=== PATIENT | male | born 1985 | race Caucasian/White ===

== ENCOUNTER 2017-02-02 19:02 | Inpatient (IN) | END 2017-02-13 17:56 | disposition home or self-care (01) | DRG 207 | DX: J69.0 Pneumonitis due to inhalation of food and vomit (principal); G92 Toxic encephalopathy; J96.00 Acute respiratory failure, unspecified whether with hypoxia or hypercapnia; F11.23 Opioid dependence with withdrawal; T40.1X1A Poisoning by heroin, accidental (unintentional), initial encounter; Y92.9 Unspecified place or not applicable; R45.1 Restlessness and agitation; F15.129 Other stimulant abuse with intoxication, unspecified; D72.829 Elevated white blood cell count, unspecified ==

== ENCOUNTER 2017-03-12 20:33 | Emergency (ER) | payer OTHER ==
[~2017-03-12] VITALS: Ht 165.1 cm; Wt 75.0 kg
[~2017-03-12 20:33] MED LIST: ALBU18HF INH; METH10TA2 PO
[2017-03-12 20:35] VITALS: Ht 165.1 cm; Wt 75.0 kg
[2017-03-12] MEDS ORDERED: LEVALBUTEROL (NEB) 1.25 MG/0.5 ML AMP INH STA (20:46)
[2017-03-12] MEDS ORDERED: DEXAMETHASONE 10 MG/ML 1 ML INJ IM STA (20:46)
[2017-03-12] MEDS ORDERED: IPRATROPIUM (NEB) 0.5 MG/2.5 ML AMP INH STA (20:46)
--- NOTE | 2017-03-12 21:08 | RADRPT ---
PROCEDURE: XR Chest. CLINICAL INDICATION: Asthma exacerbation TECHNIQUE: Single frontal view of the chest was obtained COMPARISON: 03/01/2017 FINDINGS: The heart and mediastinum are within normal limits. The lungs are clear. Minimal blunting of right costophrenic angle consistent with very small residual right pleural effus ion improved compared to previous study. IMPRESSION: Minimal blunting of right costophrenic angle consistent with very small residual right pleural effus ion improved compared to previous study. RPTAT: HJES .Shorty Belcher MD, MD Date Time Electronically viewed and signed by .Shorty Belcher MD, on 03/12/2017 21:08 .S/
[2017-03-12] MEDS ORDERED: ALBU18HF INHALATION (21:53)
--- NOTE | 2017-03-12 22:06 | ERD ---
ER Documentation Chief Complaint Date/Time DATE: 03/12/17 TIME: 21:53 Chief Complaint SOB X2 HRS, RAN OUT OF RESCUE INHALERS AND MEDS HPI 21-year-old male patient with a past medical history of asthma presents to the ED complaining of shortness of breath that occurred intermittently for 2 days. States that he has had a productive cough. Patient has sick contacts, his son with similar symptoms. Denies any fever, nausea, vomiting, abdominal pain, chest pain, dyspnea on exertion. ROS All systems reviewed and are negative except as per history of present illness. Medications Home Meds Active Scripts Albuterol Sulfate* (Ventolin HFA*) 18 Gm Hfa.aer.ad, 2 PUFF INHALATION Q4H, #1 INHALER Prov:CHARLES HARDWICK PA-C 03/12/17 Methadone Hcl* (Methadone*) 10 Mg Tab, 20 MG PO Q12, #60 TAB 0 Refills Prov:SARATH STARKEYP S. 02/13/17 Albuterol Sulfate* (Ventolin HFA*) 18 Gm Hfa.aer.ad, 4 PUFF INH Q2H RESP THERAPY Y for SHORTNESS OF BREATH, #1 2 Refills Prov:SARATH STARKEYP S. 02/13/17 Allergies Allergies: Coded Allergies: No Known Allergy (Unverified , 02/02/17) PMhx/Soc Hx Substance Use: Yes (heroin) Smoking Status: Former smoker Physical Exam Vitals Vital Signs Date Time Temp Pulse Resp B/P Pulse Ox O2 Delivery O2 Flow Rate FiO2 03/12/17 20:59 92 28 99 21 03/12/17 20:35 97.7 118 20 132/68 99 Physical Exam Const: Qke-awk-dmhldnabq, well-nourished. In no acute distress. Head: Atraumatic, normocephalic Eyes: Normal Conjunctiva without injection. No purulent discharge. PERRL. EOMI ENT: Normal external ear. Ear canal without erythema. Tympanic membrane pearly patterson without effusion or bulging. Nasal canal clear with normal turbinates. Moist oropharynx without tonsillar exudates. Non-erythematous pharynx. Uvula midline. No drooling. No trismus. Neck: Full range of motion. No meningismus. No cervical lymphadenopathy. Resp: Inspiratory and expiratory wheezing noted. No rhonchi, rales, or crackles. No accessory muscle use. No retractions. Cardio: Regular rate and rhythm. No murmurs, rubs or gallops. Abd: Soft, non tender, non distended. Normal bowel sounds. No palpable masses. No rebound tenderness. No guarding. Skin: No petechiae or rashes Back: No midline tenderness. No CVA tenderness. Ext: No cyanosis, or edema. Neur: Awake and alert. Psych: Normal Mood and Affect Results 24 hrs Current Medications Medications (Trade) Dose Ordered Sig/Christiano Route PRN Reason Start Time Stop Time Status Last Admin Dose Admin Levalbuterol (Xopenex Neb) 5 mg ONCE STAT INH 03/12/17 20:46 03/12/17 20:48 DC 03/12/17 20:58 Ipratropium Maynard (Atrovent 0.02% (Neb)) 1 mg ONCE STAT INH 03/12/17 20:46 03/12/17 20:48 DC 03/12/17 20:58 Dexamethasone (Decadron) 10 mg ONCE STAT IM 03/12/17 20:46 03/12/17 20:48 DC 03/12/17 20:59 Procedures/MDM 31-year-old male patient with no significant past medical history presents the ED complaining shortness of breath started intermittently for 2 days. Patient is afebrile and nontoxic-appearing. A chest x-ray was ordered to further evaluate patient. A breathing treatment consisting of 5 mg continuous Xopenex, 1 mg Atrovent, 10 mg IM Decadron was ordered to further treat patient with improvement. PROCEDURE: XR Chest. CLINICAL INDICATION: Asthma exacerbation TECHNIQUE: Single frontal view of the chest was obtained COMPARISON: 03/01/2017 FINDINGS: The heart and mediastinum are within normal limits. The lungs are clear. Minimal blunting of right costophrenic angle consistent with very small residual right pleural effusion improved compared to previous study. IMPRESSION: Minimal blunting of right costophrenic angle consistent with very small residual right pleural effusion improved compared to previous study. Patient likely has an asthma exacerbation. Low suspicion for atypical VT, pneumonia, pulmonary embolism, pneumothorax, foreign body aspiration, cardiac tamponade, sinusitis, peritonsillar abscess, mastoiditis, Indra's angina, retropharyngeal abscess, meningitis, sepsis or other emergent conditions. Patient's respiratory status has stabilized while in the department and is appropriate for outpatient work up. Exam and work up not consistent w/ impending respiratory failure or cardiovascular collapse. Discharge medications: Ventolin Follow up with primary care physician in 1-2 days. Instructed patient to return to the ED sooner for any worsening symptoms. Patient's questions were answered. Patient understood and agreed with discharge plan. Patient discharged stable. Departure Diagnosis: Primary Impression: Asthma attack Condition: Stable Patient Instructions: Asthma, Acute (Adult) Referrals: PENDING SALE TO [facility] YOU HAVE RECEIVED A MEDICAL SCREENING EXAM AND THE RESULTS INDICATE THAT YOU DO NOT HAVE A CONDITION THAT REQUIRES URGENT TREATMENT IN THE EMERGENCY DEPARTMENT. FURTHER EVALUATION AND TREATMENT OF YOUR CONDITION CAN WAIT UNTIL YOU ARE SEEN IN YOUR DOCTORS OFFICE WITHIN THE NEXT 1-2 DAYS. IT IS YOUR RESPONSIBILITY TO MAKE AN APPOINTMENT FOR FOLOW-UP CARE. IF YOU HAVE A PRIMARY DOCTOR --you should call your primary doctor and schedule an appointment IF YOU DO NOT HAVE A PRIMARY DOCTOR YOU CAN CALL OUR PHYSICIAN REFERRAL HOTLINE AT IF YOU CAN NOT AFFORD TO SEE A PHYSICIAN YOU CAN CHOSE FROM THE FOLLOWING [facility] [address] [facility]. [facility] [address] [facility] [address] [facility] [facility] [address] [facility] [facility] [address] [facility]. [facility]. [address] [facility]. [facility] YOU HAVE RECEIVED A MEDICAL SCREENING EXAM AND THE RESULTS INDICATE THAT YOU DO NOT HAVE A CONDITION THAT REQUIRES URGENT TREATMENT IN THE EMERGENCY DEPARTMENT. FURTHER EVALUATION AND TREATMENT OF YOUR CONDITION CAN WAIT UNTIL YOU ARE SEEN IN YOUR DOCTORS OFFICE WITHIN THE NEXT 1-2 DAYS. IT IS YOUR RESPONSIBILITY TO MAKE AN APPOINTMENT FOR FOLOW-UP CARE. IF YOU HAVE A PRIMARY DOCTOR --you should call your primary doctor and schedule and appointment IF YOU DO NOT HAVE A PRIMARY DOCTOR YOU CAN CALL OUR PHYSICIAN REFERRAL HOTLINE AT . IF YOU CAN NOT AFFORD TO SEE A PHYSICIAN YOU CAN CHOSE FROM THE FOLLOWING [facility] INSTITUTIONS: [facility] [address] [place] [address] [facility] [address] [place] [address] [facility] + [facility] [address] [place] [address] [facility] Additional Instructions: Call your primary care doctor TOMORROW for an appointment during the next 1-2 days.See the doctor sooner or return here if your condition worsens before your appointment time. CHARLES HARDWICK PA-C Mar 12, 2017 22:05 CHARLES HARDWICK PA-C Mar 12, 2017 22:05
[2017-03-12 22:15] VITALS: PULSE 87; RESP 20; TEMP 98
== END 2017-03-12 21:15 | disposition home or self-care (01) ==
LOC: FTE 20:33
DX: J45.901 Unspecified asthma with (acute) exacerbation (principal); Z87.891 Personal history of nicotine dependence
CPT/HCPCS: 71010; 94644; 96372; J1100; Z7502; Z7610

== ENCOUNTER 2017-03-19 18:28 | Inpatient (IN) | payer OTHER ==
[~2017-03-19] VITALS: Ht 167.6 cm; Wt 66.3 kg
[~2017-03-19 18:28] MED LIST changes: +ALBU18HF INHALATION
[2017-03-19 19:19] VITALS: BP 117/56; RESP 20
[2017-03-19] MEDS ORDERED: PRED50TA PO (20:06)
[2017-03-19] MEDS ORDERED: METH10TA2 PO (20:11)
[2017-03-19] MEDS ORDERED: NACL 0.9% 3 ML SYG IV SCH (20:30)
[2017-03-19] MEDS ORDERED: BISACODYL (EC) 5 MG TAB PO PRN (20:30)
[2017-03-19] MEDS ORDERED: DOCUSATE SODIUM 100 MG CAP PO PRN (20:30)
[2017-03-19] MEDS ORDERED: ONDANSETRON 4 MG INJ IV PRN (20:30)
[2017-03-19] MEDS ORDERED: ACETAMINOPHEN 325 MG TAB PO PRN (20:30)
[2017-03-19 20:43] VITALS: Ht 167.6 cm; Wt 66.3 kg
[2017-03-19] MEDS: FAMOTIDINE 20 MG TAB PO SCH (21:46)
[2017-03-19] MEDS ORDERED: mucinex ORAL (22:54)
[2017-03-20] MEDS: ALBUTEROL 0.083% (NEB) 2.5 MG/3 ML AMP HHN SCH ×6 (02:15→20:16)
[2017-03-20 02:24] VITALS: BP 100/59; RESP 18
--- NOTE | 2017-03-20 04:53 | HP ---
Date/Time of Note Date/Time of Note DATE: 03/20/17 TIME: 04:44 Assessment/Plan VTE Prophylaxis VTE Prophylaxis Intervention: SCD's Lines/Catheters IV Catheter Type (from [facility]): Saline Lock Assessment/Plan Chief Complaint/Hosp Course This is a 31-year-old male being admitted to the [facility] floor for: #1 asthma exacerbation: At the current time we will treat with albuterol every 4 hours, prednisone burst, though there are no signs of any pneumonia on the chest x-ray from the transferring facility notes at the current time as patient does have an elevated white blood cell count and productive sputum and history of fevers will treat for underlying infection. Will obtain x-ray in the a.m. #2 polysubstance abuse: Patient was admitted last month and treated for heroin withdrawal where he required intubation. He is currently on a methadone taper. He is to start 2035 mg of methadone today for 5 days. We will attempt to contact [facility] regarding his methadone dosage. #3 DVT and GI prophylaxis: SCDs, as a ulysses Further treatment strategy will be implemented as per the clinical course Problems: HPI/ROS Admit Date/Time Admit Date/Time Mar 19, 2017 at 18:36 Hx of Present Illness Chief complaint: Shortness of breath, fever This is a 31-year-old male who was transferred from [facility] with symptoms of asthma exacerbation. Patient states that approximately 1 week ago he started experiencing fevers chills and shortness of breath. Approximately 4 days ago he was started on albuterol treatments as well as steroids however since then he has got worse. At the current time he states that he is cough is productive of phlegm greenish and yellow color in nature. He has been currently on steroids daily. He was debated last month after he was found to be under heroin withdrawal. He is currently on methadone taper. He states that he gets his methadone from [facility]. He is currently on 35 mg daily. He denies any chest pain at this time. Of note 1 patient arrived at [facility] he was noted to be in respiratory distress with increased work of breathing. Upon my examination patient is lying comfortably in bed in no acute distress. He does have expiratory wheezing on exam. Allergies: NKDA Medications: See GURMEET GONSALVES Const: As per HPI Eyes : No pain discharge or redness or change in visual acuity ENT: No pain, sore throat, congestion, congestion, dysphagia or discharge Respiratory: As per HPI Cardiovascular: No chest pain, palpitation, PND, or edema GI : no change in appetite, abdominal pain, nausea, vomiting, diarrhea, constipation, or change in the color his stool Genitourinary: No dysuria, hematuria, flank pain , discharge or CVA tenderness Musculoskeletal: No joint pain, back pain, neck pain, restricted range of motion in neck or joints Skin: No rash, bruising or hives Neuro: No headache, dizziness, syncope, seizure, focal weakness Endocrine: No polyuria, polydipsia, temperature intolerance Psych: No hallucination, depression, anxiety or suicidal ideation PMH/Family/Social Past Medical History Asthma, polysubstance abuse, recent admission for heroin withdrawal requiring intubation Past Surgical History Past Surgical Hx: no surgical history Family History Significant Family History: diabetes Social History Alcohol Use: none Smoking Status: Former smoker ([id number] history, he quit approximately 1 month ago) Drug Use: heroin (Quit 2 months ago), other (Is currently on methadone taper) Exam/Review of Systems Vital Signs Vitals Vital Signs Date Time Temp Pulse Resp B/P Pulse Ox O2 Delivery O2 Flow Rate FiO2 03/20/17 04:06 64 20 98 21 03/20/17 02:24 97.8 100/59 Exam Exam General: Well-developed and lying in bed in no acute distress HEENT: Atraumatic, normocephalic. The pupils are equal, round and reactive. Extraocular motor are intact Neck: Supple with full range of motion. No rigidity or meningismus Chest: Nontender Lungs: Bilateral expiratory wheezing, adequate air movement bilaterally Heart: Normal S1-S2, Regular rhythm and rate. No overt murmurs appreciated Abdomen: Soft , nontender, nondistended , bowel sounds are present. No guarding no rebound tenderness , No masses or organomegaly. No costovertebral temporal angle mass Extremities: Normal to inspection, no edema no cyanosis Neurologic: Normal mental status, speech normal, cranial nerves II through XII are intact, motor and sensory are intact, no focal weakness Additional Comments Pertinent laboratory findings from transferring facility, please see chart for full lab details: CBC White blood cell count 19 hemoglobin 13 hematocrit 41 platelets 391 Sodium 135 potassium 3.6 chloride 101 bicarb 27 BUN 14 creatinine 0.7 Chest x-ray: Did not show any acute abnormalities Medications Medications Current Medications Ondansetron HCl (Zofran Inj) 4 mg Q6H PRN IV NAUSEA AND/OR VOMITING; Start at 20:30 Acetaminophen (Tylenol Tab) 650 mg Q6H PRN PO PAIN LEVEL 1-3 OR FEVER; Start at 20:30 Docusate Sodium (Colace) 100 mg Q12H PRN PO CONSTIPATION; Start 03/19/17 at 20: 30 Bisacodyl (Dulcolax) 5 mg DAILY PRN PO CONSTIPATION; Start 03/19/17 at 20:30 Famotidine (Pepcid) 20 mg Q12 PO Last administered on 03/19/17t 21:46; Admin Dose 20 MG; Start 03/19/17 at 21:00 BRODY NELSON Mar 20, 2017 04:53
[2017-03-20] MEDS ORDERED: LEVOFLOXACIN 750MG/D5W (PMX) 150 ML IVPB SCH (06:00)
[2017-03-20 06:21] LABS: HEMATOCRIT 38.7 % (42.0-52.0); HEMOGLOBIN 12.5 g/dl (14.0-18.0); LYMPHOCYTES # 2.1 10^3/ul (0.8-2.9); LYMPHOCYTES % 10.2 % (15.0-51.0); MEAN CORPUSCULAR HEMOGLOBIN 28.1 pg (29.0-33.0); MEAN CORPUSCULAR HGB CONC 32.3 g/dl (32.0-37.0); MEAN PLATELET VOLUME 9.8 fl (7.4-10.4); MONOCYTE # 1.5 10^3/ul (0.3-0.9); MONOCYTES % 7.3 % (0.0-11.0); NEUTROPHIL # 16.8 10^3/ul (1.6-7.5); NEUTROPHILS % 81.8 % (39.0-77.0); PLATELET COUNT 420 10^3/UL (140-415); RED BLOOD COUNT 4.45 10^6/ul (4.70-6.10); RED CELL DISTRIBUTION WIDTH 14.8 % (11.5-14.5); WHITE BLOOD COUNT 20.5 10^3/ul (4.8-10.8)
[2017-03-20 07:02] LABS: ALBUMIN 3.5 g/dl (3.3-4.9); ALBUMIN/GLOBULIN RATIO 1.06; BILIRUBIN,INDIRECT 0.2 mg/dl (0-1.1); BILIRUBIN,TOTAL 0.2 mg/dl (0.2-1.3); CALCIUM 9.2 mg/dl (8.4-10.2); CHOL/HDL RATIO 2.1 RATIO; CREATININE 0.61 mg/dl (0.61-1.24); MAGNESIUM 2.2 mg/dl (1.7-2.5); POTASSIUM 4.3 mmol/L (3.5-5.1); TOTAL PROTEIN 6.8 g/dl (6.1-8.1)
[2017-03-20 07:23] LABS: THYROID STIMULATING HORMONE 0.125 MIU/L (0.465-4.680)
[2017-03-20 07:44] VITALS: BP 112/62; RESP 18
[2017-03-20] MEDS: FAMOTIDINE 20 MG TAB PO SCH ×2 (09:27→20:27)
[2017-03-20] MEDS: predniSONE 50 MG TAB PO SCH (09:27)
[2017-03-20 13:10] VITALS: BP 123/60; RESP 18
[2017-03-20] MEDS: METHADONE 10 MG TAB PO SCH (14:30)
--- NOTE | 2017-03-20 14:38 | PN ---
Date/Time of Note Date/Time of Note DATE: 03/20/17 TIME: 14:35 Assessment/Plan VTE Prophylaxis VTE Prophylaxis Intervention: SCD's Lines/Catheters IV Catheter Type (from [facility]): Saline Lock Assessment/Plan Chief Complaint/Hosp Course Assessment and plan 1. Asthma exacerbation -Continue breathing treatment via DuoNeb, oxygen as needed, prednisone -Follow up chest x-ray -Respiratory therapy consulted 2. History of drug abuse -Continue methadone 3. History of nicotine abuse/smoking -in Remission DVT prophylaxis on SCD Problems: Subjective 24 Hr Interval Summary Free Text/Dictation Patient denies of any chest pain or shortness of breath He does complain of having itchiness in his throat Denies of any abdominal pain or nausea vomiting Tolerating oral intake without having any difficulty with swallowing Exam/Review of Systems Vital Signs Vitals Vital Signs Date Time Temp Pulse Resp B/P Pulse Ox O2 Delivery O2 Flow Rate FiO2 03/20/17 13:10 97.7 99 18 123/60 97 03/20/17 12:45 21 Exam General: The patient is well-developed, Not in acute distress. HEENT: Atraumatic, normocephalic. The pupils are equal and round . Neck: Supple with full range of motion. Chest: Normal expansion of the thorax during inspiration Lungs: Clear to auscultation bilaterally Heart: Normal S1-S2, Regular rhythm and rate. Abdomen: Soft , nontender, nondistended , bowel sounds are present. Extremities: Normal to inspection, no edema no cyanosis Neurologic: Normal mental status,The patient is awake, alert and oriented . Results Result Diagram: 03/20/17 0533 03/20/17 0533 Results 24 hrs Laboratory Tests Test 03/20/17 05:33 White Blood Count 20.5 #H Red Blood Count 4.45 #L Hemoglobin 12.5 #L Hematocrit 38.7 #L Mean Corpuscular Volume 87.0 Mean Corpuscular Hemoglobin 28.1 L Mean Corpuscular Hemoglobin Concent 32.3 Red Cell Distribution Width 14.8 H Platelet Count 420 H Mean Platelet Volume 9.8 Neutrophils % 81.8 H Lymphocytes % 10.2 L Monocytes % 7.3 Eosinophils % 0.0 Basophils % 0.0 Nucleated Red Blood Cells % 0.0 Neutrophils # 16.8 H Lymphocytes # 2.1 Monocytes # 1.5 H Eosinophils # 0.0 Basophils # 0.0 Nucleated Red Blood Cells # 0.0 Sodium Level 138 Potassium Level 4.3 Chloride Level 104 Carbon Dioxide Level 28 Anion Gap 10 Blood Urea Nitrogen 16 Creatinine 0.61 Glucose Level 107 Hemoglobin A1c 5.6 Calcium Level 9.2 Magnesium Level 2.2 Total Bilirubin 0.2 Direct Bilirubin 0.00 Indirect Bilirubin 0.2 Aspartate Amino Transf (AST/SGOT) 19 Alanine Aminotransferase (ALT/SGPT) 25 Alkaline Phosphatase 72 Total Protein 6.8 Albumin 3.5 Globulin 3.30 H Albumin/Globulin Ratio 1.06 Triglycerides Level 58 Cholesterol Level 147 LDL Cholesterol, Calculated 65 HDL Cholesterol 70 H Cholesterol/HDL Ratio 2.1 Thyroid Stimulating Hormone (TSH) 0.125 L Medications Medications Current Medications Ondansetron HCl (Zofran Inj) 4 mg Q6H PRN IV NAUSEA AND/OR VOMITING; Start at 20:30 Acetaminophen (Tylenol Tab) 650 mg Q6H PRN PO PAIN LEVEL 1-3 OR FEVER; Start at 20:30 Docusate Sodium (Colace) 100 mg Q12H PRN PO CONSTIPATION; Start 03/19/17 at 20: 30 Bisacodyl (Dulcolax) 5 mg DAILY PRN PO CONSTIPATION; Start 03/19/17 at 20:30 Famotidine 20 mg 20 mg Q12 PO Last administered on 03/20/17 09:27; Admin Dose 20 MG; Start 03/19/17 at 21:00 Levofloxacin/ Dextrose (Levaquin 750 Mg/ D5W 150 ml (Pmx)) 150 ml @ 100 mls/hr Q24H IVPB Last administered on 03/20/17 05:35; Admin Dose 100 MLS/HR; Start at 06:00 Prednisone (Prednisone) 50 mg DAILY PO Last administered on 03/20/17 09:27; Admin Dose 50 MG; Start 03/20/17 at 09:00 Methadone HCl (Methadone) 25 mg DAILY PO Last administered on 03/20/17 14:30; Admin Dose 25 MG; Start 03/20/17 at 14:30; Stop 03/22/17 at 09:01 Methadone HCl (Methadone) 20 mg DAILY PO ; Start 03/23/17 at 09:00; Stop at 09:01 Methadone HCl (Methadone) 15 mg DAILY PO ; Start 03/25/17 at 09:00; Stop at 09:01 Methadone HCl (Methadone) 10 mg DAILY PO ; Start 03/28/17 at 09:00; Stop at 09:01 Methadone HCl (Methadone) 5 mg DAILY PO ; Start 03/31/17 at 09:00; Stop at 09:01 RUEL ATWOOD MD Mar 20, 2017 14:38
[2017-03-20] MEDS ORDERED: ALBUTEROL/IPRATROPIUM (NEB) 3 ML AMP HHN PRN (15:00)
--- NOTE | 2017-03-20 15:14 | RADRPT ---
PROCEDURE: XR Chest. CLINICAL INDICATION: Shortness of breath. Asthma exacerbation. TECHNIQUE: Two views. Frontal and lateral. COMPARISON: 03/12/2017. FINDINGS: The lungs are clear. The heart size is normal. There is no pleural effusion. There is no pneumothorax. IMPRESSION: 1. Normal chest radiograph. RPTAT: QQ .Jose Vaughan MD, MD Date Time Electronically viewed and signed by .Jose Vaughan MD, MD on 03/20/2017 15:13 .R/
[2017-03-20] MEDS ORDERED: GUAIFENESIN 20 MG/ML 5ML CUP PO PRN (15:30)
[2017-03-20] MEDS: CEFTRIAXONE 1 GM/50 ML (PMX) 50 ML IVPB SCH (16:21)
[2017-03-20 19:50] VITALS: BP 126/58; RESP 20
[2017-03-21] MEDS: ALBUTEROL 0.083% (NEB) 2.5 MG/3 ML AMP HHN SCH ×6 (01:01→20:43)
[2017-03-21 01:50] VITALS: BP 107/54; RESP 20
[2017-03-21 06:23] LABS: BASOPHIL # 0.1 10^3/ul (0.0-0.1); BASOPHILS % 0.4 % (0.0-2.0); EOSINOPHILS # 0.2 10^3/ul (0.0-0.5); EOSINOPHILS % 1.1 % (0.0-7.0); HEMATOCRIT 39.6 % (42.0-52.0); HEMOGLOBIN 12.3 g/dl (14.0-18.0); LYMPHOCYTES # 4.8 10^3/ul (0.8-2.9); LYMPHOCYTES % 33.7 % (15.0-51.0); MEAN CORPUSCULAR HEMOGLOBIN 27.5 pg (29.0-33.0); MEAN CORPUSCULAR HGB CONC 31.1 g/dl (32.0-37.0); MEAN CORPUSCULAR VOLUME 88.6 fl (82.0-101.0); MEAN PLATELET VOLUME 9.8 fl (7.4-10.4); MONOCYTE # 1.4 10^3/ul (0.3-0.9); MONOCYTES % 9.6 % (0.0-11.0); NEUTROPHIL # 7.7 10^3/ul (1.6-7.5); NEUTROPHILS % 54.7 % (39.0-77.0); PLATELET COUNT 389 10^3/UL (140-415); RED BLOOD COUNT 4.47 10^6/ul (4.70-6.10); RED CELL DISTRIBUTION WIDTH 15.1 % (11.5-14.5); WHITE BLOOD COUNT 14.1 10^3/ul (4.8-10.8)
[2017-03-21 06:49] LABS: CALCIUM 9.2 mg/dl (8.4-10.2); CREATININE 0.85 mg/dl (0.61-1.24); MAGNESIUM 2.1 mg/dl (1.7-2.5); POTASSIUM 4.7 mmol/L (3.5-5.1)
[2017-03-21 07:24] VITALS: BP 107/62; RESP 20
[2017-03-21] MEDS: FAMOTIDINE 20 MG TAB PO SCH ×2 (08:57→21:10)
[2017-03-21] MEDS: METHADONE 10 MG TAB PO SCH (08:57)
[2017-03-21] MEDS: predniSONE 50 MG TAB PO SCH (08:57)
--- NOTE | 2017-03-21 12:24 | PDOCDIS ---
Discharge Instructions CONDITION Patient Condition: Good HOME CARE INSTRUCTIONS: Diet Instructions: Regular ACTIVITY: Activity Restrictions: Slowly Increase Activity Rest between Activity Do not operate Machinery Do not operate Power Tool FOLLOW UP/APPOINTMENTS Follow-up Plan Follow up with primary care physician as outpatient RUEL ATWOOD MD Mar 21, 2017 12:24
[2017-03-21] MEDS ORDERED: ALBU18HF INHALATION (12:26)
[2017-03-21] MEDS ORDERED: GUAI-637 PO (12:26)
[2017-03-21] MEDS ORDERED: PRED5TAB PO (12:26)
[2017-03-21] MEDS ORDERED: AZIT250T6 PO (12:26)
[2017-03-21] MEDS ORDERED: IPRA4AER INHALATION (12:27)
--- NOTE | 2017-03-21 12:39 | PN ---
Date/Time of Note Date/Time of Note DATE: 03/21/17 TIME: 12:36 Assessment/Plan VTE Prophylaxis VTE Prophylaxis Intervention: SCD's Lines/Catheters IV [facility]from [facility] Saline Lock Urinary Cath still in place: No Assessment/Plan Chief Complaint/Hosp Course Assessment and plan 1. Asthma exacerbation -Continue breathing treatment via DuoNeb, oxygen as needed, prednisone -Follow up chest x-ray -Respiratory therapy consulted 2. Bacteremia with coagulase-negative staph Continue Rocephin Follow up CBC in a.m. 3. Abnormal thyroid panel Follow-up free T3 and free T4 4. History of drug abuse -Continue methadone 5. History of nicotine abuse/smoking -in Remission DVT prophylaxis on SCD Problems: Subjective 24 Hr Interval Summary Free Text/Dictation Denies of any chest pain or shortness of breath Tolerating oral intake Denies of any wheezing Continues to complain of a mild upper respiratory tract discomfort and itchiness Exam/Review of Systems Vital Signs Vitals Vital Signs Date Time Temp Pulse Resp B/P Pulse Ox O2 Delivery O2 Flow Rate FiO2 03/21/17 08:15 83 18 97 21 03/21/17 07:24 98.0 107/62 Intake and Output 03/20/17 03/20/17 03/21/17 15:00 23:00 07:00 Intake Total 350 ml 1250 ml Balance 350 ml 1250 ml Exam General: The patient is well-developed, Not in acute distress. HEENT: Atraumatic, normocephalic. The pupils are equal and round . Neck: Supple with full range of motion. Chest: Normal expansion of the thorax during inspiration Lungs: Clear to auscultation bilaterally Heart: Normal S1-S2, Regular rhythm and rate. Abdomen: Soft , nontender, nondistended , bowel sounds are present. Extremities: Normal to inspection, no edema no cyanosis Neurologic: Normal mental status,The patient is awake, alert and oriented . Results Result Diagram: 03/21/17 0532 03/21/17 0532 Results 24 hrs Laboratory Tests Test 03/21/17 05:32 White Blood Count 14.1 #H Red Blood Count 4.47 L Hemoglobin 12.3 L Hematocrit 39.6 L Mean Corpuscular Volume 88.6 Mean Corpuscular Hemoglobin 27.5 L Mean Corpuscular Hemoglobin Concent 31.1 L Red Cell Distribution Width 15.1 H Platelet Count 389 Mean Platelet Volume 9.8 Neutrophils % 54.7 Lymphocytes % 33.7 Monocytes % 9.6 Eosinophils % 1.1 Basophils % 0.4 Nucleated Red Blood Cells % 0.0 Neutrophils # 7.7 H Lymphocytes # 4.8 H Monocytes # 1.4 H Eosinophils # 0.2 Basophils # 0.1 Nucleated Red Blood Cells # 0.0 Sodium Level 139 Potassium Level 4.7 Chloride Level 104 Carbon Dioxide Level 31 Anion Gap 9 Blood Urea Nitrogen 24 H Creatinine 0.85 Glucose Level 88 Calcium Level 9.2 Magnesium Level 2.1 Medications Medications Current Medications Ondansetron HCl (Zofran Inj) 4 mg Q6H PRN IV NAUSEA AND/OR VOMITING; Start at 20:30 Acetaminophen (Tylenol Tab) 650 mg Q6H PRN PO PAIN LEVEL 1-3 OR FEVER; Start at 20:30 Docusate Sodium (Colace) 100 mg Q12H PRN PO CONSTIPATION; Start 03/19/17 at 20: 30 Bisacodyl (Dulcolax) 5 mg DAILY PRN PO CONSTIPATION; Start 03/19/17 at 20:30 Famotidine (Pepcid) 20 mg Q12 PO Last administered on 03/21/17 08:57; Admin Dose 20 MG; Start 03/19/17 at 21:00 Prednisone (Prednisone) 50 mg DAILY PO Last administered on 03/21/17 08:57; Admin Dose 50 MG; Start 03/20/17 at 09:00 Methadone HCl (Methadone) 25 mg DAILY PO Last administered on 03/21/17 08:57; Admin Dose 25 MG; Start 03/20/17 at 14:30; Stop 03/22/17 at 09:01 Methadone HCl (Methadone) 20 mg DAILY PO ; Start 03/23/17 at 09:00; Stop at 09:01 Methadone HCl (Methadone) 15 mg DAILY PO ; Start 03/25/17 at 09:00; Stop at 09:01 Methadone HCl (Methadone) 10 mg DAILY PO ; Start 03/28/17 at 09:00; Stop at 09:01 Methadone HCl 5 mg 5 mg DAILY PO ; Start 03/31/17 at 09:00; Stop 04/02/17 at 09: 01 Ceftriaxone Sodium (Rocephin) 50 ml @ 100 mls/hr Q24H IVPB Last administered on 03/20/17t 16:21; Admin Dose 100 MLS/HR; Start 03/20/17 at 15:30 Guaifenesin (Robitussin Liquid Cup) 100 mg Q4H PRN PO COUGH; Start 03/20/17 at 15:30 RUEL ATWOOD MD Mar 21, 2017 12:39
[2017-03-21 13:40] VITALS: BP 117/61; RESP 20
[2017-03-21] MEDS: CEFTRIAXONE 1 GM/50 ML (PMX) 50 ML IVPB SCH (15:24)
[2017-03-21 20:07] VITALS: BP 124/56; RESP 20
--- NOTE | 2017-03-21 21:34 | DS ---
DATE OF ADMISSION: 03/19/2017 DATE OF DISCHARGE: CONSULTANTS: None. DIAGNOSES: 1. Asthma exacerbation. 2. History of drug abuse. 3. History of nicotine abuse. 4. Bacteremia, with Gram coagulase-negative Staph. MEDICATIONS: 1. Keflex. 2. Prednisone. 3. Guaifenesin. 4. Albuterol. 5. Combivent. ALLERGIES: NO KNOWN DRUG ALLERGIES. LABORATORY: WBC 14.1, hemoglobin 12.3, hematocrit 39.6, platelets 389. Sodium 139, potassium 4.7, chloride 104, bicarb 31, BUN 24, creatinine 0.85, glucose 88, calcium 9.2. Hemoglobin A1c 5.6. Magnesium 2.1. TSH 0.125. HOSPITAL COURSE: This is a 31-year-old gentleman, past medical history of drug abuse, on methadone, smoking, who has been complaining of having cough, congestion, shortness of breath and wheezing x2 days and was seen and evaluated by [facility], was transferred to [facility] secondary to insurance purposes. Patient was treated with IV antibiotics, breathing treatment at [facility]. He was started on breathing treatment and IV antibiotics. Chest x-ray was obtained, which did not demonstrate any acute cardiopulmonary disease. He has been asymptomatic. His vitals are stable, with temperature of 98.0, pulse 68, respirations 20, blood pressure 107/60, oxygen saturation 97 percent in room air. At this time, patient's WBC has been improving from 20.5 to 14.1. Patient has been placed on Rocephin, although the TSH is found to be at the low side at 0.125. will monitor the patient, and we will follow up patient's free T3 and free T4, also his WBC tomorrow, and if patient continues to improve with his breathing and WBC is starting to move, patient will be discharged home in stable condition. Dictated By: Richard Osman MD /[email or web address] /Document#: [id number]
[2017-03-22] MEDS: ALBUTEROL 0.083% (NEB) 2.5 MG/3 ML AMP HHN SCH ×4 (01:13→13:00)
[2017-03-22 01:49] VITALS: BP 114/56; RESP 20
[2017-03-22 05:44] LABS: ABNORMAL IP MESSAGE 1; BASOPHIL # 0.1 10^3/ul (0.0-0.1); BASOPHILS % 0.3 % (0.0-2.0); EOSINOPHILS # 0.2 10^3/ul (0.0-0.5); EOSINOPHILS % 0.9 % (0.0-7.0); HEMATOCRIT 40.4 % (42.0-52.0); HEMOGLOBIN 13.1 g/dl (14.0-18.0); LYMPHOCYTES # 5.5 10^3/ul (0.8-2.9); LYMPHOCYTES % 34.4 % (15.0-51.0); MEAN CORPUSCULAR HEMOGLOBIN 28.5 pg (29.0-33.0); MEAN CORPUSCULAR HGB CONC 32.4 g/dl (32.0-37.0); MEAN CORPUSCULAR VOLUME 87.8 fl (82.0-101.0); MEAN PLATELET VOLUME 9.4 fl (7.4-10.4); MONOCYTE # 1.2 10^3/ul (0.3-0.9); MONOCYTES % 7.3 % (0.0-11.0); NEUTROPHILS % 56.3 % (39.0-77.0); PLATELET COUNT 389 10^3/UL (140-415); POSITIVE DIFF @See below; RED CELL DISTRIBUTION WIDTH 14.9 % (11.5-14.5); WHITE BLOOD COUNT 16.1 10^3/ul (4.8-10.8)
[2017-03-22 06:59] LABS: FREE T3 3.81 pg/ml (2.77-5.27)
[2017-03-22 07:01] LABS: CALCIUM 9.2 mg/dl (8.4-10.2); CREATININE 0.72 mg/dl (0.61-1.24); POTASSIUM 4.2 mmol/L (3.5-5.1)
[2017-03-22] MEDS: predniSONE 50 MG TAB PO SCH (08:01)
[2017-03-22] MEDS: FAMOTIDINE 20 MG TAB PO SCH (08:01)
[2017-03-22] MEDS: METHADONE 10 MG TAB PO SCH (08:02)
[2017-03-22 08:20] VITALS: BP 110/59; RESP 20
[2017-03-22 13:10] VITALS: BP 126/61; RESP 20
--- NOTE | 2017-03-22 13:16 | DS ---
Date/Time of Note Date/Time of Note DATE: 03/22/17 TIME: 13:03 Discharge Summary Admission/Discharge Info Admit Date/Time Mar 19, 2017 at 18:36 Discharge Date/Time Discharge Diagnosis 1. Asthma exacerbation, improved, follow up with PCP 2. History of drug abuse, advised to quit 3. History of nicotine abuse, advise to quit 4. Anxiety and depression, PCP to start treatment Patient Condition: Stable Hospital Course This is a 31-year-old gentleman, past medical history of drug abuse, on methadone, smoking, who has been complaining of having cough, congestion, shortness of breath and wheezing x2 days and was seen and evaluated by [facility], was transferred to [facility] secondary to insurance purposes. Patient was treated with IV antibiotics, breathing treatment at [facility]. He was started on breathing treatment and IV antibiotics. Chest x-ray was obtained, which did not demonstrate any acute cardiopulmonary disease. Patient is treated with rocephin, nebulizer, and steroid. Symptoms improved. He will be on keflex, inhaler and tapering dosage of prednisone. He is strongly advised to quit smoking. Patient has anxiety that he has panic attack sometimes, he is put on diazepam prn. He feels depressed lately but not suicidal or homicidal. He is instructed to see his PCP as soon as possible to start on antidepressant. I explained that I will not start antidepressant now since antidepressant takes weeks to kick in and different physician has different preference on picking up medications. He may need to see a psychiatrist per PCP's referral. Home Meds Active Scripts Albuterol/Ipratropium* (Combivent Respimat*) 20-100 Mcg/Inh - 4 Gm Aer.w.adap, 1 PUFF INHALATION QID, #1 INHALER Prov:RUEL ATWOOD MD 03/21/17 Azithromycin* (Azithromycin*) 250 Mg Tablet, 250 MG PO DAILY, #5 TAB Prov:RUEL ATWOOD MD 03/21/17 Prednisone* (Prednisone*) 5 Mg Tab, 5 MG PO BID, #10 TAB Prov:RUEL ATWOOD MD 03/21/17 Guaifenesin (Guaifenesin) 100 Mg/5 Ml Liquid, 100 MG PO Q4H Y for COUGH for 10 Days Prov:RUEL ATWOOD MD 03/21/17 Albuterol Sulfate* (Ventolin HFA*) 18 Gm Hfa.aer.ad, 2 PUFF INHALATION Q4H, #1 INHALER Prov:RUEL ATWOOD MD 03/21/17 Reported Medications [mucinex] No Conflict Check, 2 TAB ORAL DAILY 03/19/17 Methadone Hcl* (Methadone*) 10 Mg Tab, 35 MG PO DAILY 03/19/17 Discontinued Reported Medications Prednisone* (Prednisone*) 50 Mg Tablet, 50 MG PO DAILY, TAB FOR 5 DAYS;PT ABLE TO TAKE PREDNISONE FOR 4 DAYS ALREADY 03/19/17 Discontinued Scripts Methadone Hcl* (Methadone*) 10 Mg Tab, 20 MG PO Q12, #60 TAB 0 Refills Prov:ARSH STARKEY S. 02/13/17 Albuterol Sulfate* (Ventolin HFA*) 18 Gm Hfa.aer.ad, 4 PUFF INH Q2H RESP THERAPY Y for SHORTNESS OF BREATH, #1 2 Refills Prov:ARSH STARKEY S. 02/13/17 Follow-up Plan Follow up with primary care physician as outpatient Primary Care Provider Mark Reid MD in one week Pending Labs Laboratory Tests Test 03/22/17 05:20 White Blood Count 16.110^3/ul (4.8-10.8) Red Blood Count 4.6010^6/ul (4.70-6.10) Hemoglobin 13.1g/dl (14.0-18.0) Hematocrit 40.4% (42.0-52.0) Mean Corpuscular Volume 87.8fl (82.0-101.0) Mean Corpuscular Hemoglobin 28.5pg (29.0-33.0) Mean Corpuscular Hemoglobin Concent 32.4g/dl (32.0-37.0) Red Cell Distribution Width 14.9% (11.5-14.5) Platelet Count 76569^3/UL (140-415) Mean Platelet Volume 9.4fl (7.4-10.4) Neutrophils % 56.3% (39.0-77.0) Lymphocytes % 34.4% (15.0-51.0) Monocytes % 7.3% (0.0-11.0) Eosinophils % 0.9% (0.0-7.0) Basophils % 0.3% (0.0-2.0) Nucleated Red Blood Cells % 0.0/100WBC (0.0-0.0) Neutrophils # 9.010^3/ul (1.6-7.5) Lymphocytes # 5.510^3/ul (0.8-2.9) Monocytes # 1.210^3/ul (0.3-0.9) Eosinophils # 0.210^3/ul (0.0-0.5) Basophils # 0.110^3/ul (0.0-0.1) Nucleated Red Blood Cells # 0.010^3/ul (0.0-0.0) Sodium Level 138mmol/L (135-144) Potassium Level 4.2mmol/L (3.5-5.1) Chloride Level 103mmol/L (97-110) Carbon Dioxide Level 29mmol/L (21-31) Anion Gap 10 (8-16) Blood Urea Nitrogen 17mg/dl (7-20) Creatinine 0.72mg/dl (0.61-1.24) Glucose Level 90mg/dl (70-220) Calcium Level 9.2mg/dl (8.4-10.2) Free Thyroxine 1.00ng/dl (0.79-2.35) Free Triiodothyronine (T3) pg/mL 3.81pg/ml (2.77-5.27) RUPAL BABIN MD Mar 22, 2017 13:16
[2017-03-23] MEDS ORDERED: METHADONE 10 MG TAB PO SCH (09:00)
[2017-03-25] MEDS ORDERED: METHADONE 10 MG TAB PO SCH (09:00)
[2017-03-28] MEDS ORDERED: METHADONE 10 MG TAB PO SCH (09:00)
[2017-03-31] MEDS ORDERED: METHADONE 5 MG TAB PO SCH (09:00)
== END 2017-03-22 15:05 | disposition home or self-care (01) | DRG 202 ==
LOC: MS2 18:36 → UNDODISIN 03-22 13:30
PROVIDERS: ADMIT Internal Medicine; ATTEND Internal Medicine
DX: J45.901 Unspecified asthma with (acute) exacerbation (principal); R78.81 Bacteremia; F19.10 Other psychoactive substance abuse, uncomplicated; F41.9 Anxiety disorder, unspecified; F32.9 Major depressive disorder, single episode, unspecified
CPT/HCPCS: 71020; 80048; 80053; 80061; 83036; 83735; 84439; 84443; 84481; 85025; 87070; 87081; 87275; 87276; 87279; 87280; 94640; 94664; J0696; J1956; J7512

== ENCOUNTER 2018-07-16 20:18 | Emergency (ER) | payer OTHER ==
[~2018-07-16] VITALS: Ht 144.8 cm; Wt 74.0 kg
[~2018-07-16 20:18] MED LIST changes: -ALBU18HF INH; +AZIT250T13 PO; +GUAI-637 PO; +IPRA4AER INHALATION; +PRED5TAB PO; +mucinex ORAL
[2018-07-16 20:21] VITALS: BP 139/77; PULSE 109; RESP 16; Ht 144.8 cm; Wt 74.0 kg
[2018-07-16] MEDS ORDERED: ALBU2.5V3 NEB (21:36)
[2018-07-16] MEDS ORDERED: ALBU8.5H8 INH (21:36)
--- NOTE | 2018-07-16 21:37 | ERD ---
ER Documentation Chief Complaint Chief Complaint requests med refill of his inhaler HPI 33-year-old male with history of asthma is here requesting medication refill for his albuterol inhaler. He ran out of it today. He has no other complaints. ROS All systems reviewed and are negative except as per history of present illness. Medications Home Meds Active Scripts Albuterol Sulfate* (Proair HFA*) 8.5 Gm Hfa.aer.ad, 2 PUFF INH Q4, #1 INHALER Prov:SATURNINO MCCAIN PA-C 07/16/18 Albuterol Sulfate* (Albuterol Sulfate* Neb) 0.083%-3 Ml Neb, 2.5 MG NEB Q4 PRN for SHORTNESS OF BREATH, #30 EA Prov:SATURNINO MCCAIN PA-C 07/16/18 Albuterol/Ipratropium* (Combivent Respimat*) 20-100 Mcg/Inh - 4 Gm Aer.w.adap, 1 PUFF INHALATION QID, #1 INHALER Prov:RUEL ATWOOD MD 03/21/17 Azithromycin* (Azithromycin*) 250 Mg Tablet, 250 MG PO DAILY, #5 TAB Prov:RUEL ATWOOD MD 03/21/17 Prednisone* (Prednisone*) 5 Mg Tab, 5 MG PO BID, #10 TAB Prov:RUEL ATWOOD MD 03/21/17 Guaifenesin (Guaifenesin) 100 Mg/5 Ml Liquid, 100 MG PO Q4H PRN for COUGH for 10 Days Prov:RUEL ATWOOD MD 03/21/17 Albuterol Sulfate* (Ventolin HFA*) 18 Gm Hfa.aer.ad, 2 PUFF INHALATION Q4H, #1 INHALER Prov:RUEL ATWOOD MD 03/21/17 Reported Medications [mucinex] No Conflict Check, 2 TAB ORAL DAILY 03/19/17 Methadone Hcl* (Methadone*) 10 Mg Tab, 35 MG PO DAILY 03/19/17 Allergies Allergies: Coded Allergies: No Known Allergy (Unverified , 02/02/17) PMhx/Soc History of Surgery: No Anesthesia Reaction: No Hx Neurological Disorder: No Hx Respiratory Disorders: Yes (asthma, pneumonia) Hx Cardiac Disorders: No Hx Psychiatric Problems: Yes (anxiety) Hx Miscellaneous Medical Probl: No (drug abuse- detoxification taking methadone ) Hx Alcohol Use: Yes Hx Substance Use: Yes Smoking Status: Never smoker FmHx Family History: No diabetes Physical Exam Vitals Vital Signs Date Temp Pulse Resp B/P (MAP) Pulse Ox O2 O2 Flow FiO2 Time Delivery Rate 07/16/18 98.2 109 16 139/77 99 20:21 (97) Physical Exam Const: No acute distress Head: Atraumatic Eyes: Normal Conjunctiva ENT: Normal External Ears, Nose and Mouth. Neck: Full range of motion. No meningismus. Resp: Clear to auscultation bilaterally Cardio: Regular rate and rhythm, no murmurs Procedures/MDM 33-year-old male is here requesting medication refill for asthma inhaler and nebulizing solution. No other complaints. Lungs are clear at this time. Patient counseled regarding my diagnostic impression and care plan. Prior to discharge all questions answered. Pt agrees with treatment plan and understands strict return precautions. Pt is instructed to follow up with primary care mata soni within 24-48 hours. Precautionary instructions provided including instructions to return to the ER if not improving or for any worsening or changing symptoms or concerns. Departure Diagnosis: Primary Impression: Encounter for medication refill Condition: Stable Patient Instructions: Taking Medicine Safely Additional Instructions: Call your primary care doctor TOMORROW for an appointment during the next 1-2 days.See the doctor sooner or return here if your condition worsens before your appointment time. SATURNINO MCCAIN PA-C Jul 16, 2018 21:37
== END 2018-07-16 22:00 | disposition home or self-care (01) ==
LOC: FTE 20:18
DX: Z76.0 Encounter for issue of repeat prescription (principal); J45.909 Unspecified asthma, uncomplicated
CPT/HCPCS: 99281

== ENCOUNTER 2018-08-09 22:58 | Emergency (ER) | payer OTHER ==
[~2018-08-09] VITALS: Ht 167.6 cm; Wt 84.0 kg
[~2018-08-09 22:58] MED LIST changes: +ALBU2.5V3 NEB; +ALBU8.5H8 INH
[2018-08-09 23:11] VITALS: BP 131/73; PULSE 88; RESP 20; Ht 167.6 cm; Wt 84.0 kg
[2018-08-10] MEDS ORDERED: ALBU8.5H8 INH (00:18)
[2018-08-10] MEDS ORDERED: ALBU2.5V3 NEB (00:18)
--- NOTE | 2018-08-10 00:20 | ERD ---
ER Documentation Chief Complaint Chief Complaint Pt reports he is out of his albuterol inhaler tonight HPI 33-year-old male is here requesting medication refill for albuterol and albuterol nebulizing solution. He just ran out tonight. He has no other complaints. No shortness of breath. At this time he feels fine ROS All systems reviewed and are negative except as per history of present illness. Medications Home Meds Active Scripts Albuterol Sulfate* (Proair HFA*) 8.5 Gm Hfa.aer.ad, 2 PUFF INH Q4, #1 INHALER Prov:SATURNINO MCCAIN PA-C 08/10/18 Albuterol Sulfate* (Albuterol Sulfate* Neb) 0.083%-3 Ml Neb, 2.5 MG NEB Q4 PRN for SHORTNESS OF BREATH, #30 EA Prov:SATURNINO MCCAIN PA-C 08/10/18 Albuterol Sulfate* (Proair HFA*) 8.5 Gm Hfa.aer.ad, 2 PUFF INH Q4, #1 INHALER Prov:SATURNINO MCCAIN PA-C 07/16/18 Albuterol Sulfate* (Albuterol Sulfate* Neb) 0.083%-3 Ml Neb, 2.5 MG NEB Q4 PRN for SHORTNESS OF BREATH, #30 EA Prov:SATURNINO MCCAIN PA-C 07/16/18 Albuterol/Ipratropium* (Combivent Respimat*) 20-100 Mcg/Inh - 4 Gm Aer.w.adap, 1 PUFF INHALATION QID, #1 INHALER Prov:RUEL ATWOOD MD 03/21/17 Azithromycin* (Azithromycin*) 250 Mg Tablet, 250 MG PO DAILY, #5 TAB Prov:RUEL ATWOOD MD 03/21/17 Prednisone* (Prednisone*) 5 Mg Tab, 5 MG PO BID, #10 TAB Prov:RUEL ATWOOD MD 03/21/17 Guaifenesin (Guaifenesin) 100 Mg/5 Ml Liquid, 100 MG PO Q4H PRN for COUGH for 10 Days Prov:RUEL ATWOOD MD 03/21/17 Albuterol Sulfate* (Ventolin HFA*) 18 Gm Hfa.aer.ad, 2 PUFF INHALATION Q4H, #1 INHALER Prov:RUEL ATWOOD MD 03/21/17 Reported Medications [mucinex] No Conflict Check, 2 TAB ORAL DAILY 03/19/17 Methadone Hcl* (Methadone*) 10 Mg Tab, 35 MG PO DAILY 03/19/17 Allergies Allergies: Coded Allergies: No Known Allergy (Unverified , 02/02/17) PMhx/Soc History of Surgery: No Anesthesia Reaction: No Hx Neurological Disorder: No Hx Respiratory Disorders: Yes (asthma, pneumonia) Hx Cardiac Disorders: No Hx Psychiatric Problems: Yes (anxiety) Hx Miscellaneous Medical Probl: No (drug abuse- detoxification taking methadone ) Hx Alcohol Use: Yes Hx Substance Use: Yes Smoking Status: Never smoker FmHx Family History: No diabetes Physical Exam Vitals Vital Signs Date Temp Pulse Resp B/P (MAP) Pulse Ox O2 O2 Flow FiO2 Time Delivery Rate 08/09/18 98.2 88 20 131/73 99 23:11 (92) Physical Exam Const: No acute distress Head: Atraumatic Eyes: Normal Conjunctiva ENT: Normal External Ears, Nose and Mouth. Neck: Full range of motion. No meningismus. Resp: Clear to auscultation bilaterally Cardio: Regular rate and rhythm, no murmurs Procedures/MDM Patient given refills of his albuterol inhaler and albuterol nebulizing solution. His lungs are clear at this time. Patient counseled regarding my diagnostic impression and care plan. Prior to discharge all questions answered. Pt agrees with treatment plan and understands strict return precautions. Pt is instructed to follow up with primary care provider within 24-48 hours. Precautionary instructions provided including instructions to return to the ER if not improving or for any worsening or changing symptoms or concerns. Departure Diagnosis: Primary Impression: Encounter for medication refill Condition: Stable Patient Instructions: Taking Medicine Safely Additional Instructions: Call your primary care doctor TOMORROW for an appointment during the next 1-2 days.See the doctor sooner or return here if your condition worsens before your appointment time. SATURNINO MCCAIN PA-C Aug 10, 2018 00:20
== END 2018-08-10 00:40 | disposition home or self-care (01) ==
LOC: FTE 22:58
DX: Z76.0 Encounter for issue of repeat prescription (principal); J45.909 Unspecified asthma, uncomplicated
CPT/HCPCS: 99281

== ENCOUNTER 2018-09-09 20:10 | Emergency (ER) | payer SELFPAY | END 2018-09-09 21:19 | disposition left against medical advice (07) | LOC: FTE 20:10 | DX: Z53.21 Procedure and treatment not carried out due to patient leaving prior to being seen by health care provider (principal) ==